=== PATIENT | male | born 1980 | race Hispanic/Latino ===

== ENCOUNTER 2016-08-12 14:28 | Emergency (ER) | payer SELFPAY ==
[~2016-08-12] VITALS: Ht 170.2 cm; Wt 113.6 kg
[2016-08-12 14:44] VITALS: BP 120/77; PULSE 74; RESP 14; O2SAT 97
--- NOTE | 2016-08-12 14:50 | ED.REPORT ---
HPI-Hand Prob/Inj Date of Service Aug 12, 2016 ED Provider: Dr. Morgan De Souza MD A 36 year old male presents to the ED complaining of an injury to his thumb that occurred just prior to arrival. Patient was reportedly cutting hamburger buns in half and sliced his finger with a knife. He denies any other injuries at this time. Patient's last tetanus is unknown. He denies any numbness/ tingling or weakness in the thumb. Nursing Notes Stated Complaint: CUT LEFT THUMB Chief Complaint: Laceration Nursing Notes Reviewed: Yes Allergies: Coded Allergies: milk (Verified Adverse Reaction, Unknown, 08/12/16) No Active Prescriptions or Reported Meds General Time Seen by Provider: 14:51 Chief Complaint Finger pain left Hx Obtained From: Patient Arrived By: Walk-in Onset Occurred: Just prior to arrival Context of Onset: Home injury Symptom Duration: Since onset Progression Since Onset: Unchanged Caused by: Accidental, Knife wound Location: Right Hand: : Base of thumb Quality: Painful Severity: Current: Mild Severity: Maximum: Mild Pertinent Negative: Pt denies other symptoms Immunizations: Unknown Recent Healthcare: No recent doctor visit, No recent hospitalization Past Medical History Past Medical History None reported. Past Surgical History None reported. Smoking History Current Every Day Smoker Social History Other Social History: Good social support, Local resident Ambulatory Status Independent Review of Systems Denies any other injuries at this time. Constitutional: Denies: Chills, Fever Musculoskeletal: Reports: Extremity pain (L thumb pain) Skin: Denies Swelling Neurologic: Denies: Numbness, Weakness Complete sys rev & neg: except as marked. Physical Exam Initial Vital Signs Vital Signs (First) Date Time Temp Pulse Resp B/P Pulse Ox O2 Delivery O2 Flow Rate FiO2 08/12/16 14:44 37.2 74 14 120/77 97 Room Air Initial VS: Reviewed Head / Eyes: Atraumatic, Normocephalic, PERRL Neck: Supple, Non-tender, Full range of motion Extremities: Vascular intact, Neuro intact, No swelling, No tenderness Skin: Warm, Dry, No cyanosis Psychiatric: Mood/affect normal, Behavior normal, Normal thought content Wrist / Hand: Atraumatic, Neurologic intact, Vascular intact Trauma / Burn / Environmental: Positive: Laceration (18mm laceration to the L thumb) General/Constitutional: Awake, Alert, No acute distress Neurologic: Oriented X3, No motor deficits, No sensory deficits, CN II - XII intact Respiratory / Chest: Atraumatic, No respiratory distress Cardiovascular: Peripheral circulation NL, Pulses = bilaterally Procedures Laceration Management Time: 15:00 Procedure Performed by: ED physician Consent / Setup / Site Prep: Consent from patient, Time-out performed, Hand hygiene observed, Stand sterile technique Location of Wound: 18mm laceration to the L thumb Wound Length: 2 cm (18mm) Local Anesthesia: Lidocaine w epi 1% Digit Involved: Thumb left Wound Preparation: [place]urclens Irrigation: Copious Foreign Body Explore / Removal: Explored for foreign body (No FB) Repair Skin: ___ O (4), Nylon # Sutures - Skin: 5 Suture Technique: Simple Post-Procedure / Complications: Antibiotic oint applied, Dressing applied, No complications, Condition improved, Tolerated procedure well, Patient stable Re-Eval/Medical Decision Re-Evaluation/Progress : Time of Eval: 15:00 Re-Evaluation/Progress Note: Laceration is repaired. He tolerates the procedure very well. He understands and agrees with the plan. Counseled Regarding: Diagnosis, Need for follow-up, When/why to return to ED Discharge & Departure Primary Impression: Laceration Disposition: Home Discharge Condition All VS Reviewed: Yes Condition: Improved Patient Instructions: Finger Laceration (ED) Additional Instructions: Thank you for trusting us with your care this afternoon. Your emergency department examination is reassuring that there is no dangerous injury or signs of infection at this time. We repaired your laceration and you tolerated the procedure very well. Keep the area clean and dry for the next 24 hours. Return to the emergency department in the next 10 days to have the stitches removed. You received an updated tetanus shot in the emergency room today. Take 800 mg of ibuprofen every 8 hours as needed for pain. Schedule a follow up appointment with your primary care physician in the next week for a recheck. Please return to the emergency department if you begin to develop any new or worsening conditions including any fever, chills, redness, swelling or worsening pain. Referrals: [facility] (PCP) [facility] Scribe Attestation Portions of this note were transcribed by Shanti Jimenez. I, Dr. De Souza personally performed the history, physical exam and medical decision-making; I reviewed and confirmed the accuracy of the information in the transcribed note. Signed by: Aaron Cochran, 08/12/16 1515. Morgan De Souza MD Aug 12, 2016 14:50 SHANTI JIMENEZ Aug 12, 2016 14:57
[2016-08-12] MEDS ORDERED: Lidocaine 1%/Epi 1:100,000 30 mL MDV ONE (14:57)
[2016-08-12] MEDS ORDERED: TdaP Vaccine 0.5 mL Inj IM ONE (15:00)
[2016-08-12 15:23] VITALS: BP 120/77; PULSE 74; RESP 14; O2SAT 97
== END 2016-08-12 15:15 | disposition home or self-care (01) ==
LOC: SED 14:28
DX: S61.012A Laceration without foreign body of left thumb without damage to nail, initial encounter (principal); W26.0XXA Contact with knife, initial encounter; Y93.89 Activity, other specified; Y92.89 Other specified places as the place of occurrence of the external cause; Y99.8 Other external cause status; F17.200 Nicotine dependence, unspecified, uncomplicated; Z23 Encounter for immunization; Z91.018 Allergy to other foods